=== PATIENT | male | born 1960 | race African-American/Black ===

== ENCOUNTER 2017-01-21 23:41 | Emergency (ER) | payer BC | END 2017-01-21 23:53 | disposition EXP | LOC: CED 23:41 | DX: I46.9 Cardiac arrest, cause unspecified (principal); I21.3 ST elevation (STEMI) myocardial infarction of unspecified site; I47.2 Ventricular tachycardia; I25.10 Atherosclerotic heart disease of native coronary artery without angina pectoris | CPT/HCPCS: 92950; 99285; J0171 ==